=== PATIENT | female | born 1980 | race Caucasian/White ===

== ENCOUNTER 2019-03-17 20:35 | Emergency (ER) | payer SELFPAY ==
[~2019-03-17] VITALS: Ht 149.9 cm; Wt 75.7 kg
[2019-03-17 20:50] VITALS: BP 140/90
--- NOTE | 2019-03-17 20:55 | NUR ---
TO LOBBY A/W BED, AMBULATORY
--- NOTE | 2019-03-17 21:25 | NUR ---
PT AMBULATED TO ER BED 08
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
[2019-03-17] MEDS ORDERED: KETOROLAC 60 MG/2 ML VIAL IM ONE (23:10)
--- NOTE | 2019-03-17 23:24 | NUR ---
PT TAKEN TO RAD VIA WHEELCHAIR
--- NOTE | 2019-03-17 23:37 | NUR ---
PT RETURNED FROM RAD VIA WHEELCHAIR
--- NOTE | 2019-03-17 23:44 | NUR ---
Patient discharged with v/s stable. Written and verbal after care instructions given and explained. Patient alert, oriented and verbalized understanding of instructions. Ambulatory with steady gait. All questions addressed prior to discharge. ID band removed. Patient advised to follow up with PMD. Rx of MINERAL OIL AND LACTULOSE given. Patient educated on indication of medication including possible reaction and side effects. Opportunity to ask questions provided and answered.
[2019-03-17 23:45] VITALS: BP 147/94
== END 2019-03-17 23:44 | disposition home or self-care (01) ==
LOC: EDBD 20:35 → MED 20:35
DX: K59.00 Constipation, unspecified (principal); R03.0 Elevated blood-pressure reading, without diagnosis of hypertension
CPT/HCPCS: 74022; 81002; 81025; 96372; 99283; J1885

== ENCOUNTER 2019-10-06 15:50 | Emergency (ER) | payer MEDICAID ==
[~2019-10-06] VITALS: Ht 144.8 cm; Wt 68.3 kg
[2019-10-06 16:00] VITALS: BP 148/100
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
[2019-10-06] MEDS ORDERED: IBUPROFEN 600 MG TAB PO ONE (16:40)
--- NOTE | 2019-10-06 17:37 | NUR ---
IRRIGATED RIGHT GREAT TOE WITHOUT ANY ISSUES
[2019-10-06] MEDS ORDERED: LIDOCAINE MPF 1% 10 MG/ML VIAL INJ ONE ×2 (17:50→18:10)
[2019-10-06] MEDS ORDERED: BACITRACIN OINT 500 UNITS/GM PKT TP ONE ×3 (18:40→18:41)
[2019-10-06 18:44] VITALS: BP 150/89
--- NOTE | 2019-10-06 18:45 | NUR ---
Patient discharged with v/s stable. Written and verbal after care instructions given and explained. Patient alert, oriented and verbalized understanding of instructions. Ambulatory with steady gait. All questions addressed prior to discharge. ID band removed. Patient advised to follow up with PMD. Rx of bacitracin and ibuprofen given. Patient educated on indication of medication including possible reaction and side effects. Opportunity to ask questions provided and answered.
== END 2019-10-06 18:45 | disposition home or self-care (01) ==
LOC: MED 15:50
DX: S91.204A Unspecified open wound of right lesser toe(s) with damage to nail, initial encounter (principal); W23.0XXA Caught, crushed, jammed, or pinched between moving objects, initial encounter; Y93.89 Activity, other specified; Y92.89 Other specified places as the place of occurrence of the external cause; Y99.8 Other external cause status
CPT/HCPCS: 11730; 73660; 90471; 90715; 99284; J2001; 99283